=== PATIENT | male | born 1955 | race Caucasian/White ===

== ENCOUNTER 2023-05-13 09:37 | Emergency (ER) | payer OTHER ==
[~2023-05-13] VITALS: Ht 175.3 cm; Wt 81.7 kg
[~2023-05-13 09:37] MED LIST: IBUP400; TRAM50
[2023-05-13 10:15] VITALS: BP 153/90
[2023-05-13] MEDS ORDERED: Fluorescein Sod 1MG Opth Strips RIGHTEYE ONE (10:45)
[2023-05-13] MEDS ORDERED: Tetracaine HCl/Pf 0.5% Opth Soln 4 ml BOTHEYES ONE (10:45)
[2023-05-13] MEDS ORDERED: Proparacaine 0.5% Opth Soln 15 ML BTL RIGHTEYE ONE (10:55)
[2023-05-13] MEDS ORDERED: NS 1,000 ML IV SCH (11:30)
[2023-05-13] MEDS ORDERED: Metoclopramide HCl 5MG / ML 2ML Vial IV ONE (11:30)
[2023-05-13] MEDS ORDERED: Ketorolac Tromethamine 30mg Vial IV ONE (11:30)
== END 2023-05-13 13:03 | disposition home or self-care (01) ==
LOC: ER 09:37
DX: G43.B0 Ophthalmoplegic migraine, not intractable (principal); H43.391 Other vitreous opacities, right eye
CPT/HCPCS: 70450; 96374; 96375; 99283-25; A9270; A9270-GY; J1885; J2765; J7030